=== PATIENT | male | born 1995 | race Caucasian/White ===

== ENCOUNTER 2017-09-30 04:06 | Emergency (ER) | payer SELFPAY ==
[2017-09-30] MEDS ORDERED: Lidocaine 1% PF 5 ML VIAL ONE ×2 (04:19→04:23)
[2017-09-30] MEDS ORDERED: Morphine 10 MG/ML VIAL ONE (04:22)
== END 2017-09-30 05:30 | disposition home or self-care (01) ==
LOC: ERS 04:06
DX: L02.31 Cutaneous abscess of buttock (principal)
CPT/HCPCS: 46040; 96372; J2001; J2270